=== PATIENT | female | born 1950 | race Caucasian/White ===

== ENCOUNTER 2021-07-23 08:00 | Day surgery (SDC) | payer MEDICARE, SELFPAY ==
[2021-07-17 11:01] VITALS: BMI 41.1
--- NOTE | 2021-07-20 08:02 | MHC.SHP ---
Pre-Procedural Eval Section A Date of Service: 07/20/21 The patient is an INPATIENT: No Changes since office visit: No Cold of Flu in the past 2 weeks, No New Medical Problems, No Changes in Medication and No Patient answered all questions The History & Physical has been completed within 30 days and I have reviewed it.: Yes Section B Chief Complaint: cataract Allergies: Allergies Allergy/AdvReac Type Severity Reaction Status Date / Time nickel Allergy Redness of Verified 07/17/21 10:20 Skin oxycodone Allergy Unknown Verified 07/17/21 10:20 pravastatin [From Pravachol] Allergy Muscle Verified 07/17/21 10:20 cramps codeine AdvReac Nausea and Verified 07/17/21 10:20 Vomiting Plan Diagnosis/Plan: Unchanged I have reviewed the history and physical and performed a pertinent physical examination on my patient. No changes have occurred unless specified.
[2021-07-23 08:53] VITALS: BP 124/78; PULSE 76; RESP 18; TEMP 36.8; O2SAT 95
[2021-07-23 08:54] LABS: Glucose, Whole Blood 124 mg/dL (60-115)
[2021-07-23] MEDS: Tetracaine HCl/PF 0.5% Oph Sol 4 ML DROPS 1 DROP EYE-LEFT (08:59)
[2021-07-23] MEDS: Tropicamide 1 % Ophth Sol 3 ML BTL 1 DROP EYE-LEFT ×3 (09:00→09:05)
[2021-07-23] MEDS: Phenylephrine HCL 2.5% Oph SoL 2 ML BOTTLE 1 DROP EYE-LEFT ×3 (09:01→09:06)
--- NOTE | 2021-07-23 09:03 | P.CONAN_ITS ---
HPI - Anesthesia Eval Consult details Narrative: left eye cataract [facility] Past Medical History Medical History (Updated 07/17/21 @ 10:17 by Ava Loomis, RN) Depression DM type 2 (diabetes mellitus, type 2) GERD (gastroesophageal reflux disease) History of basal cell cancer History of breast cancer History of endometrial cancer History of herpes zoster HTN (hypertension) Hyperlipidemia Hypothyroid Obesity BARBARA on CPAP Paroxysmal SVT (supraventricular tachycardia) Plantar fasciitis of left foot Family History Family history of problems with anesthesia: No Surgical History Surgical History (Updated 07/17/21 @ 10:17 by Ava Loomis, RN) History of esophagogastroduodenoscopy (EGD) History of right mastectomy History of total bilateral knee replacement Hx of colonoscopy Hx of hysterectomy History of Problems with Anesthesia: No Social History Social History Are you a primary home health care worker to a significant other at home: No Do you presently have visiting nurse or other home services: No Use of substances other than those prescribed or required for medical reasons: No Have you been hit, kicked, punched, or otherwise hurt by someone within the past year? If so, by whom?: No Are you DNR?: No Advance Directives: No Advance Directives Information Provided: Yes Advance Directives on File: No Recently lost weight without trying: No Eating poorly because of decreased appetite: No Nutrition Risks: No Nutritional Risk Patient : No Meds Allergies Allergy/AdvReac Type Severity Reaction Status Date / Time nickel Allergy Redness of Verified 07/17/21 10:20 Skin oxycodone Allergy Unknown Verified 07/17/21 10:20 pravastatin [From Pravachol] Allergy Muscle Verified 07/17/21 10:20 cramps codeine AdvReac Nausea and Verified 07/17/21 10:20 Vomiting Active Medications: Current Medications Cyclopentolate HCl (Cyclopentolate 1 % Ophth Orin 2 Ml Drpbtl) 1 drop EYE-LEFT Q5M [facility] Stop: 07/23/21 08:56 Lactated Ringer's (Lr) 500 mls @ 50 mls/hr IVCONT .Q10H SP Ketorolac Tromethamine (Ketorolac Tromethamine 0.5% Op 3 Ml Drops) 1 drop EYE- LEFT Q5M [facility] Stop: 07/23/21 08:56 Last Admin: 07/23/21 09:01 Dose: 1 drop Documented by: Moxifloxacin HCl (Moxifloxacin Hcl 0.5 % Oph Orin 3 Ml Drpbtl) 1 drop EYE-LEFT POSTOP ONE Stop: 07/23/21 08:32 Phenylephrine HCl (Phenylephrine Hcl 2.5% Oph Orin 2 Ml Bottle) 1 drop EYE-LEFT Q5M SP Stop: 07/23/21 08:56 Last Admin: 07/23/21 09:01 Dose: 1 drop Documented by: Povidone Iodine (Povidone Iodine 5 % Ophth Soln 30 Ml Bottle) 1 appl EYE-LEFT PREOP PRN PRN Reason: Pre-Op Surgical Implant Prophy Tetracaine HCl (Tetracaine Hcl/Pf 0.5% Oph Orin 4 Ml Drops) 1 drop EYE-LEFT PREOP ONE Stop: 07/23/21 08:32 Last Admin: 07/23/21 08:59 Dose: 1 drop Documented by: Triamcinolone Acetonide (Triamcinolone Acetonide 40 Mg/Ml Vial) 40 mg IM POSTOP ONE Stop: 07/23/21 08:32 Tropicamide (Tropicamide 1 % Ophth Orin 3 Ml Btl) 1 drop EYE-LEFT Q5M SP Stop: 07/23/21 08:56 Last Admin: 07/23/21 09:00 Dose: 1 drop Documented by: Home Medications Medication Instructions Recorded Confirmed Last Taken Type amlodipine 5 mg-benazepril 10 mg 1 cap PO DAILY 07/17/21 07/17/21 Unknown History capsule anastrozole 1 mg tablet 1 tab PO DAILY 07/17/21 07/17/21 Unknown History atorvastatin 10 mg tablet 1 tab PO 3XW 07/17/21 07/17/21 Unknown History flaxseed oil 1,000 mg capsule 1,000 mg PO DAILY 07/17/21 07/17/21 Unknown History fluoxetine 20 mg capsule 20 mg PO DAILY 07/17/21 07/17/21 Unknown History levothyroxine 112 mcg tablet 1 tab PO DAILY 07/17/21 07/17/21 Unknown History loratadine 10 mg tablet 10 mg PO DAILY 07/17/21 07/17/21 Unknown History multivitamin 1 tab PO DAILY 07/17/21 07/17/21 Unknown History Exam Exam Date and Time: July 23, 2021 09 Height,Weight and Vital Signs: Height 5 ft 4 in Weight 108.862 kg Last Vital Signs Temp 98.2 F 07/23/21 08:53 Pulse 76 07/23/21 08:53 Resp 18 07/23/21 08:53 BP 124/78 07/23/21 08:53 Pulse Ox 95 07/23/21 08:53 Pertinent Lab Results Pertinent Lab Results: Laboratory Tests 07/23/21 08:50 POC Glucose 124 H Airway Mallampati Class: II TM Dist: >3cm Neck ROM: Full Loose/Missing/Broken Teeth: No Heart: [id number] Lungs: cta b/l Assessment and Plan Assessment Anesthesia Assessment: Anesthesia Plan Discussed and Chart Reviewed Final Anesthetic Review Family History of Problems with Anesthesia: No History of Problems with Anesthesia: No NPO: Yes ASA Class: III Final Preanesthetic Review: No Changes in Pt Med Stat, Meds/Allgs Chart Reviewed, Consent Obtained/Reviewed and Anes Risks/Benef Reviewed Patient Risk: Intermediate Procedure Risk: Low Assessment/Block/Sedation in SS: Assess/Block/Sedation-SS Anesthetic Plan Anesthetic Plan: MAC: and Agree w/ Assess. and Plan Disposition: Standard PACU
[2021-07-23 09:19] VITALS: BP 124/78; PULSE 76; RESP 18; TEMP 36.8; O2SAT 95
[2021-07-23] MEDS: Lactated Ringers 500 ML 50 ML IVCONT (09:22)
--- NOTE | 2021-07-23 09:47 | HO.PNOPHT ---
Ophthalmology Procedure Procedure Date of Service: 07/23/21 Ophthalmology Viscoelastic: Healsarah Duet Dual Pack Pro Ophthalmology Lenses: TECJOAO [id number] (19) Procedure Notes: PREOPERATIVE DIAGNOSIS: Decreased visual acuity left eye secondary to cataract POSTOPERATIVE DIAGNOSIS: Same PROCEDURE: Left cataract extraction with intraocular lens insertion SURGEON: Singh Pina M.D. ANESTHESIA: Topical/MAC ESTIMATED BLOOD LOSS: None COMPLICATIONS: None After obtaining informed consent, the patient was brought to the operation room suite and placed in the supine position. After adequate sedation per anesthesia, topical drops of Tetracaine were given to the left eye. The eye was then prepped and draped in the usual sterile fashion. The operating room microscope was then positioned over the operative eye and a lid speculum placed. A paracentesis was created. Viscoelastic was then instilled into the anterior chamber. A three plane incision was then created temporally, utilizing a 2.85 mm keratome. Capsulotomy forceps were then utilized to create a circular tear capsulotomy. Hydrodissection and hydrodelineation were carried out until adequate mobilization of the nucleus occurred. Phacoemulsification was then utilized to remove the dense central nucleus followed by removal of the cortical material utilizing the automated aspiration irrigation unit. Viscoat elastic was instilled into the posterior capsular bag followed by placement of a posterior chamber intraocular lens without difficulty. The residual Viscoat elastic was then removed utilizing the automated IA machine. The wound was check and found to be watertight. The patient tolerated the procedure well and the lid speculum was removed. Intracameral injection of Vigamox 0.1 mL followed by a subtenon injection of Kenalog-40 0.2 mL were administered. The patient will be seen in the a.m.
[2021-07-23 10:14] VITALS: BP 136/76; PULSE 76; RESP 16; TEMP 36.6; O2SAT 94
== END 2021-07-23 10:27 | disposition home or self-care (01) ==
PROVIDERS: PCP Internal Medicine; Visit Provider Ophthalmology
PROC: (CPT 66985; principal; 2021-07-23 10:00)
DX: H25.12 Age-related nuclear cataract, left eye (principal); H52.4 Presbyopia; G47.33 Obstructive sleep apnea (adult) (pediatric); E03.9 Hypothyroidism, unspecified; I10 Essential (primary) hypertension; F32.9 Major depressive disorder, single episode, unspecified; E78.00 Pure hypercholesterolemia, unspecified; E11.9 Type 2 diabetes mellitus without complications; C50.911 Malignant neoplasm of unspecified site of right female breast; I47.1 Supraventricular tachycardia; Z17.0 Estrogen receptor positive status [ER+]; Z79.811 Long term (current) use of aromatase inhibitors; Z85.828 Personal history of other malignant neoplasm of skin; Z79.899 Other long term (current) drug therapy; Z99.89 Dependence on other enabling machines and devices; Z88.8 Allergy status to other drugs, medicaments and biological substances
CPT/HCPCS: 66984; 82947; J2250; J3010; J3300; V2632

== ENCOUNTER 2021-08-06 06:44 | Day surgery (SDC) | payer MEDICARE, SELFPAY ==
[2021-07-17 11:05] VITALS: BMI 41.1
--- NOTE | 2021-08-03 09:30 | MHC.SHP ---
Pre-Procedural Eval Section A Date of Service: 08/03/21 The patient is an INPATIENT: No Changes since office visit: No Cold of Flu in the past 2 weeks, No New Medical Problems, No Changes in Medication and No Patient answered all questions The History & Physical has been completed within 30 days and I have reviewed it.: Yes Section B Chief Complaint: cataract Allergies: Allergies Allergy/AdvReac Type Severity Reaction Status Date / Time nickel Allergy Redness of Verified 07/17/21 10:20 Skin oxycodone Allergy Unknown Verified 07/17/21 10:20 pravastatin [From Pravachol] Allergy Muscle Verified 07/17/21 10:20 cramps codeine AdvReac Nausea and Verified 07/17/21 10:20 Vomiting Plan Diagnosis/Plan: Unchanged I have reviewed the history and physical and performed a pertinent physical examination on my patient. No changes have occurred unless specified.
--- NOTE | 2021-08-06 07:13 | HO.ANESPROP2 ---
HPI - Anesthesia Eval Consult details Narrative: Right eye cataract [facility] Past Medical History Medical History (Updated 07/17/21 @ 10:17 by Ava Loomis, RN) Depression DM type 2 (diabetes mellitus, type 2) GERD (gastroesophageal reflux disease) History of basal cell cancer History of breast cancer History of endometrial cancer History of herpes zoster HTN (hypertension) Hyperlipidemia Hypothyroid Obesity BARBARA on CPAP Paroxysmal SVT (supraventricular tachycardia) Plantar fasciitis of left foot Family History Family history of problems with anesthesia: No Surgical History Surgical History (Updated 07/17/21 @ 10:17 by Ava Loomis, RN) History of esophagogastroduodenoscopy (EGD) History of right mastectomy History of total bilateral knee replacement Hx of colonoscopy Hx of hysterectomy History of Problems with Anesthesia: No Social History Social History Are you a primary progressive care unit registered nurse to a significant other at home: No Do you presently have visiting nurse or other home services: No Use of substances other than those prescribed or required for medical reasons: No Have you been hit, kicked, punched, or otherwise hurt by someone within the past year? If so, by whom?: No Are you DNR?: No Advance Directives: No Advance Directives Information Provided: No Advance Directives on File: No Recently lost weight without trying: No Eating poorly because of decreased appetite: No Nutrition Risks: No Nutritional Risk Patient : No Meds Allergies Allergy/AdvReac Type Severity Reaction Status Date / Time nickel Allergy Redness of Verified 07/17/21 10:20 Skin oxycodone Allergy Unknown Verified 07/17/21 10:20 pravastatin [From Pravachol] Allergy Muscle Verified 07/17/21 10:20 cramps codeine AdvReac Nausea and Verified 07/17/21 10:20 Vomiting Active Medications: Current Medications Povidone Iodine (Povidone Iodine 5 % Ophth Soln 30 Ml Bottle) 1 appl EYE-RIGHT PREOP PRN PRN Reason: Pre-Op Surgical Implant Prophy Home Medications Medication Instructions Recorded Confirmed Last Taken Type amlodipine 5 mg-benazepril 10 mg 1 cap PO DAILY 07/17/21 07/17/21 Unknown History capsule anastrozole 1 mg tablet 1 tab PO DAILY 07/17/21 07/17/21 Unknown History atorvastatin 10 mg tablet 1 tab PO 3XW 07/17/21 07/17/21 Unknown History flaxseed oil 1,000 mg capsule 1,000 mg PO DAILY 07/17/21 07/17/21 Unknown History fluoxetine 20 mg capsule 20 mg PO DAILY 07/17/21 07/17/21 Unknown History levothyroxine 112 mcg tablet 1 tab PO DAILY 07/17/21 07/23/21 07/23/21 History loratadine 10 mg tablet 10 mg PO DAILY 07/17/21 07/17/21 Unknown History multivitamin 1 tab PO DAILY 07/17/21 07/17/21 Unknown History Exam Exam Date and Time: August 06, 2021 0713 Height,Weight and Vital Signs: Height 5 ft 4 in Weight 108.862 kg Airway Mallampati Class: II TM Dist: >3cm Neck ROM: Full Loose/Missing/Broken Teeth: No Heart: rrr+[id number] Lungs: cta b/l Assessment and Plan Assessment Anesthesia Assessment: Anesthesia Plan Discussed and Chart Reviewed Final Anesthetic Review Family History of Problems with Anesthesia: No History of Problems with Anesthesia: No NPO: Yes ASA Class: III Final Preanesthetic Review: No Changes in Pt Med Stat, Meds/Allgs Chart Reviewed, Consent Obtained/Reviewed and Anes Risks/Benef Reviewed Patient Risk: Intermediate Procedure Risk: Low Assessment/Block/Sedation in SS: Assess/Block/Sedation-SS Anesthetic Plan Anesthetic Plan: MAC: and Agree w/ Assess. and Plan Disposition: Standard PACU
[2021-08-06] MEDS: Tetracaine HCl/PF 0.5% Oph Sol 4 ML DROPS 1 DROP EYE-RIGHT (07:40)
[2021-08-06] MEDS: Tropicamide 1 % Ophth Sol 3 ML BTL 1 DROP EYE-RIGHT ×3 (07:41→07:50)
[2021-08-06] MEDS: Phenylephrine HCL 2.5% Oph SoL 2 ML BOTTLE 1 DROP EYE-RIGHT ×3 (07:42→07:52)
[2021-08-06] MEDS: Lactated Ringers 500 ML 50 ML IVCONT (07:54)
--- NOTE | 2021-08-06 08:16 | HO.PNOPHT ---
Ophthalmology Procedure Procedure Date of Service: 08/06/21 Ophthalmology Viscoelastic: Healsarah [place] Dual Pack Pro Ophthalmology Lenses: TECNIS [id number] (19.5) Procedure Notes: PREOPERATIVE DIAGNOSIS: Decreased visual acuity right eye secondary to cataract POSTOPERATIVE DIAGNOSIS: Same PROCEDURE: Right cataract extraction with intraocular lens insertion SURGEON: Singh Pina M.D. ANESTHESIA: Topical/MAC ESTIMATED BLOOD LOSS: None COMPLICATIONS: None After obtaining informed consent, the patient was brought to the operating room suite and placed in the supine position. After adequate sedation per anesthesia, topical drops of Tetracaine were given to the right eye. The eye was then prepped and draped in the usual sterile fashion. The operating room microscope was then positioned over the operative eye and a lid speculum placed. A paracentesis was created. Viscoelastic was then instilled into the anterior chamber. A three plane incision was then created temporally, utilizing a 2.85 mm keratome. Capsulotomy forceps were then utilized to create a circular tear capsulotomy. Hydrodissection and hydrodelineation were carried out until adequate mobilization of the nucleus occurred. Phacoemulsification was then utilized to remove the dense central nucleus followed by removal of the cortical material utilizing the automated aspiration irrigation unit. Viscoelastic was instilled into the posterior capsular bag followed by placement of a posterior chamber intraocular lens without difficulty. The residual Viscoelastic was then removed utilizing the automated IA machine. The wound was checked and found to be watertight. The patient tolerated the procedure well and the lid speculum was removed. Intracameral injection of Vigamox 0.1 mL followed by a subtenon injection of Kenalog-40 0.2 mL were administered. The patient will be seen in the a.m.
[2021-08-06 08:40] VITALS: BP 119/67; PULSE 78; RESP 20; TEMP 37; O2SAT 100
== END 2021-08-06 08:55 | disposition home or self-care (01) ==
PROVIDERS: PCP Internal Medicine; Visit Provider Ophthalmology
PROC: (CPT 66985; principal; 2021-08-06 08:20)
DX: H25.11 Age-related nuclear cataract, right eye (principal); H52.4 Presbyopia; Z83.518 Family history of other specified eye disorder; C50.911 Malignant neoplasm of unspecified site of right female breast; Z17.0 Estrogen receptor positive status [ER+]; G47.33 Obstructive sleep apnea (adult) (pediatric); E78.00 Pure hypercholesterolemia, unspecified; E03.9 Hypothyroidism, unspecified; I10 Essential (primary) hypertension; E11.9 Type 2 diabetes mellitus without complications; Z79.811 Long term (current) use of aromatase inhibitors; Z79.899 Other long term (current) drug therapy; Z99.89 Dependence on other enabling machines and devices; Z96.653 Presence of artificial knee joint, bilateral; Z88.8 Allergy status to other drugs, medicaments and biological substances
CPT/HCPCS: 66984; J2250; J3300; V2632